=== PATIENT | female | born 1970 | race American Indian/Alaskan Native ===

== ENCOUNTER 2021-01-14 22:42 | Emergency (ER) | payer OTHER ==
[2021-01-14] MEDS ORDERED: cloNIDine 0.1 MG TAB PO ONE (23:32)
--- NOTE | 2021-01-14 23:34 | Emergency Department Report ---
HPI - General Chief Complaint: High BP Time Seen by Provider: 01/14/21 23:29 - HPI HPI: This is a 50-year-old -[place] female presents to the emergency department with complaint of a 3-day history of elevated blood pressure and the complaint of a headache. Headache is right-sided and started earlier this afternoon. Currently it is 6 out of 10 in intensity. She denies any vision change, slurred speech, numbness or paresthesias, weakness, chest pain, shortness of breath. The patient is on HCTZlisinopril 2024, and clonidine 0.1 mg at night, and the patient is compliant with her medication. She says that she usually has well-controlled blood pressure, but lately she has had a systolic blood pressure of 170-180 and became concerned today when she developed a headache. She says that earlier the headache was severe, but she took her c lonidine earlier this afternoon and now the headache is down to a 6 out of 10. Patient lives in [place] and is returning there tomorrow. She does have a PCP in [place]. ED Past Medical Hx - Past Medical History Previous Medical History?: Yes Hx Hypertension: Yes Hx of Cancer: Yes (breast) - Surgical History Past Surgical History?: Yes Additional Surgical History: lumpectomy partial hyst ED Review of Systems ROS: Stated complaint: HTN HEADACHE, HBP AFTER MEDS Other details as noted in HPI Comment: All other systems reviewed and negative Constitutional: denies: chills, fever Eyes: denies: eye pain, vision change ENT: denies: ear pain, throat pain Respiratory: denies: cough, shortness of breath Cardiovascular: denies: chest pain, palpitations Gastrointestinal: denies: abdominal pain, vomiting Genitourinary: denies: dysuria, discharge Musculoskeletal: denies: back pain, arthralgia Skin: denies: rash, lesions Neurological: headache. denies: weakness, numbness, paresthesias, confusion Physical Exam - Physical Exam Vital Signs: Vital Signs 01/14/21 22:54 Temperature 98.3 F Pulse Rate 69 Respiratory 18 Rate Blood Pressure 176/90 O2 Sat by Pulse 99 Oximetry Physical Exam: GENERAL: The patient is well-developed well-nourished. HENT: Normocephalic. Atraumatic. Patient has moist mucous membranes. EYES: Extraocular motions are intact. No nystagmus. NECK: Supple. Trachea is midline. CHEST/LUNGS: Clear to auscultation. There is no respiratory distress noted. HEART/CARDIOVASCULAR: Regular. There is no tachycardia. There is no murmur. ABDOMEN: Abdomen is soft, nontender. Patient has normal bowel sounds. SKIN: Skin is warm and dry. NEURO: The patient is awake, alert, and oriented. The patient is cooperative. The patient has no focal neurologic deficits. Normal speech. Cranial nerves II through XII grossly intact. No facial asymmetry. No pronator drift. MUSCULOSKELETAL: There is no tenderness or deformity. There is no limitation range of motion. ED Course Vital Signs 01/14/21 22:54 Temperature 98.3 F Pulse Rate 69 Respiratory 18 Rate Blood Pressure 176/90 O2 Sat by Pulse 99 Oximetry ED Medical Decision Making - Medical Decision Making This patient presents to the emergency department with elevated and/or uncontrolled blood pressure over the past few days and a headache that developed this afternoon. On examination she does not have any focal, motor or sensory deficits and her cranial nerves are intact. The patient's blood pressure was 176/90, despite compliance with her antihypertensive medication. She was given an extra Catapres and 1 hour later blood pressure came down to about 139/81. At this time the patient says that her headache had completely resolved. For this reason I did not feel that the patient required CT imaging of the head. We discussed staying away from salt and caffeinated products. The patient returns to [place] tomorrow and has been instructed to follow-up with her PCP. Critical Care Time: No Critical care attestation.: If time is entered above; I have spent that time in minutes in the direct care of this critically ill patient, excluding procedure time. ED Disposition Clinical Impression: Hypertension Qualifiers: Hypertension type: primary hypertension Qualified Code(s): I10 - Essential (primary) hypertension Headache Qualifiers: Headache type: unspecified Headache chronicity pattern: unspecified pattern Intractability: not intractable Qualified Code(s): R51.9 - Headache, unspecified Disposition: 01 HOME / SELF CARE / HOMELESS Is pt being admited?: No Condition: Stable Instructions: General Headache Without Cause, Hypertension, Adult, Hypertension (ED) Additional Instructions: Please follow-up with your primary care physician as soon as possible upon returning to [place]. Try to stay away from foods that are high in salt and caffeinated products. Keep a blood pressure log. Return to the emergency department with any worsening of your symptoms, new or concerning symptoms not addressed during this current emergency department visit, or with any acute distress. Referrals: PCP, Your [Other] - 2-3 Days Time of Disposition: 00:51
[2021-01-15 00:56] VITALS: BP 139/81
== END 2021-01-15 00:59 | disposition home or self-care (01) ==
LOC: ED 22:42
DX: I10 Essential (primary) hypertension (principal); R51.9 Headache, unspecified; Z90.711 Acquired absence of uterus with remaining cervical stump; Z85.3 Personal history of malignant neoplasm of breast
CPT/HCPCS: 99282